=== PATIENT | female | born 2000 | race Caucasian/White ===

== ENCOUNTER 2023-07-13 14:24 | Emergency (ER) | payer OTHER, SELFPAY ==
--- NOTE | ~2023-07-13 | XR_ITS ---
EXAMINATION: XR ANKLE, LEFT CLINICAL INFORMATION: Ankle pain after fall COMPARISON: None available. TECHNIQUE: AP, lateral, and mortise views of the left ankle. FINDINGS: No fracture. Alignment is anatomic. No erosions. Joint spaces are maintained. Soft tissues are normal. XR/XR ankle LT min 3V IMPRESSION: No acute fracture or subluxation of the left ankle.
[2023-07-13 14:48] VITALS: BP 145/76; PULSE 100; RESP 20; TEMP 37.1; O2SAT 98; BMI 29.2
--- NOTE | 2023-07-13 14:58 | ED_ITS ---
HPI - Extremity Injury (Lower) General Chief Complaint: Extremity Injury, Lower Stated Complaint: fell down stairs l leg and ankle inj Time Seen by Provider: 07/13/23 14:54 Source: patient, RN notes reviewed and old records reviewed Mode of arrival: wheelchair Limitations: no limitations History of Present Illness HPI Narrative: 22-year-old female is here today for left ankle pain. Patient was walking down the stairs while at work and missed 1 step and twisted her left ankle. Patient did not fall or hit her head. She was able to send him her foot, however reports extremely painful. Patient states that she heard pop as she was stepping down. Patient denies presyncope or syncope. Denies any dizziness or lightheadedness. MD complaint: ankle injury Onset (ago): hour(s) Injury: Left: ankle Place: work Related Data Previous Rx's Medication Instructions Recorded acetaminophen 325 mg capsule 650 mg (2 x 325 mg) PO Q6H PRN 07/13/23 pain #20 caps ibuprofen 600 mg tablet 600 mg PO Q8H PRN pain #20 tabs 07/13/23 Allergies Allergy/AdvReac Type Severity Reaction Status Date / Time No Known Allergies Allergy Unverified 07/23/20 17:25 Review of Systems 2 Review of Systems: Constitutional : No Weight loss, No Fever, No Chills, No Night Sweats, No Fatigue, No Malaise Musculoskeletal : joint pain, No Myalgias, No Joint Swelling Skin : No Skin Lesions, No rash Neuro : No Weakness, No Numbness, No Paresthesias, No Loss of Consciousness, No Dizziness, No Headache Psych : No Anxiety/Panic, No Depression, No SI/HI/AH/VH, No Social Issues, Heme/Lymph: No Bruising, No Bleeding,No Lymphadenopathy Endocrine : No Polyuria, No Polydipsia, No Temperature Intolerance Yes all other systems are reviewed and are negative [facility] Social History Social History Advance Directives: No Advance Directives Information Provided: No Physical Exam Vital Signs: Vital Signs: Last Vital Signs Temp 98.7 F 07/13/23 14:48 Pulse 100 07/13/23 14:48 Resp 20 07/13/23 14:48 BP 145/76 H 07/13/23 14:48 Pulse Ox 98 07/13/23 14:48 O2 Del Method Room Air 09/07/23 14:48 BMI result Body Mass Index 29.2 Const: General: healthy appearing, well developed, in distress and anxious Nutritional Appearance: well nourished Orientation/consciousness: patient oriented x3 HEENT: Head: Yes normal to inspection, Yes normocephalic and Yes atraumatic Eyes: General: appearance normal, both eyes and all related structures Neck: Neck: Yes normal visual inspection, Yes full ROM and Yes trachea midline Thyroid: Thyroid normal Resp: Effort & Inspection: normal respiratory effort, able to speak in complete sentences, no tracheal deviation and symmetric chest movement Auscultation: clear to auscultation bilaterally : General: Yes no CVA tenderness Back/Spine/Pelvis: Back: no CVA tenderness Skin: General skin exam: elasticity normal, turgor normal and dry skin Neuro: General: patient oriented x3 Extrem: General: Yes capillary refill normal, Yes no joint enlargement, Yes no clubbing, cyanosis or edema and Yes no pedal edema Right upper extremity: normal to inspection, full ROM and normal capillary refill Left upper extremity: normal to inspection, full ROM and normal capillary refill Right lower extremity: normal to inspection, full ROM and normal capillary refill; no cyanosis, no edema and joint enlargement noted Left lower extremity: normal to inspection, normal capillary refill and ankle Details: tenderness, swelling and abnormal ROM; no abrasions, no lacerations, no ecchymosis and no crepitus; abnormal ROM, no cyanosis and no edema Psych: Appearance: grossly normal Mental Status: mental status grossly normal Speech and movement: Normal speech and movement present Affect: normal affect Attitude: cooperative Thought process: Normal thought process present Thought content: Normal thought content present Insight: Good insight present (Psych) Judgement: Good judgement present (Psych) Course Course Course Narrative: 22-year-old female is here today for left ankle pain. Patient was walking down the stairs while at work and missed 1 step and twisted her left ankle. Patient did not fall or hit her head. She was able to send him her foot, however report s extremely painful. Patient states that she heard pop as she was stepping down. Patient denies presyncope or syncope. Denies any dizziness or lightheadedness. Will order x-ray. Patient has good range of motion. No visible bruising, mild swelling Reevaluation(s) Reevaluation #1: X-ray negative will send patient home with Ashkan wrap. Patient will keep her feet up when sitting to prevent bruising. Patient can ice select for the next 3 days. Medical Decision Making Medical Decision Making MDM Narrative: 22-year-old female is here today for left ankle pain. Patient was walking down the stairs while at work and missed 1 step and twisted her left ankle. Patient did not fall or hit her head. She was able to send him her foot, however reports extremely painful. Patient states that she heard pop as she was s tepping down. Patient denies presyncope or syncope. Denies any dizziness or lightheadedness. X-ray negative for fracture. Patient was instructed to apply ice for the next 3 days. Patient was encouraged to elevate her foot to prevent swelling. Take ibuprofen. If patient will continue with pain she should return for x-ray to reassess Differential Diagnosis Differential Diagnoses: The differential diagnosis associated with the presentation includes Ankle fracture, avulsion Independent Interpretation I performed an independent interpretation of an: Plain X-Ray Radiology Impression Discussion of test interpretation with radiology: I have reviewed the radiologist's reading. Radiologist Impression: left ankle x-ray FINDINGS: No fracture. Alignment is anatomic. No erosions. Joint spaces are maintained. Soft tissues are normal. XR/XR ankle LT min 3V IMPRESSION: No acute fracture or subluxation of the left ankle. Discharge Plan Discharge Clinical Impression: Ankle sprain and strain Patient Disposition: Home, Self-Care Instructions: Ankle Sprain (ED), How to Use an Elastic Bandage (ED) Additional Instructions: you were seen here today after you twisted your ankle. There is no fracture. Please apply ice for the next 3 days. You may keep Ashkan bandage wrapped around her ankles for comfort and stability. When sitting you can keep your foot up to help with circulation. Please follow-up with your primary care provider. You may return to emergency department if you will have any concerning symptoms. Prescriptions: New ibuprofen 600 mg tablet 600 mg PO Q8H PRN (Reason: pain) Qty: 20 0RF acetaminophen 325 mg capsule 650 mg PO Q6H PRN (Reason: pain) Qty: 20 0RF Referrals: Maria Isabel Samaniego MD [Primary Care Provider] - Stand Alone Forms: Work/School Release Interventions: ED Discharge Assessment Last Done: 07/13/23 16:16 Discharge Date/Time: 07/13/23 16:16
== END 2023-07-13 16:16 | disposition home or self-care (01) ==
PROVIDERS: Emergency Provider Emergency Medicine; PCP Family Medicine
DX: S93.402A Sprain of unspecified ligament of left ankle, initial encounter (principal); W10.9XXA Fall (on) (from) unspecified stairs and steps, initial encounter; Y93.9 Activity, unspecified; Y92.9 Unspecified place or not applicable; Y99.0 Civilian activity done for income or pay
CPT/HCPCS: 73610; 99282; 99283